=== PATIENT | female | born 1960 | race Caucasian/White ===

== ENCOUNTER 2018-02-18 05:52 | Emergency (ER) | payer OTHER ==
[2018-02-18] MEDS ORDERED: NS 0.9% 1000 ML* 1,000 ML IV ONE (06:19)
[2018-02-18] MEDS ORDERED: Ketorolac INJ* 30 MG/ML 1 ML VIAL IV PUSH ONE (06:22)
[2018-02-18] MEDS ORDERED: Diazepam SYRINGE* 5 MG/ML 2 ML SYRINGE (10 MG total) IV ONE (06:22)
[2018-02-18] MEDS ORDERED: Diazepam INJ (NF) 5 MG/ML 10 ML VIAL (50 MG TOTAL) IV STA (06:42)
[2018-02-18 06:49] LABS: ABS Basophils 0 10^3/ul (0-0.2); ABS Eosinophils 0 10^3/ul (0-0.6); ABS Lymphocytes 0.8 10^3/ul (1.0-4.8); ABS Monocytes 0.3 10^3/ul (0-0.8); ABS Neutrophils 7.5 10^3/ul (1.5-7.7); ABS Nucleated RBC 0 10^3/ul; Eosinophil % 0.2 % (0-6); Hematocrit 39 % (35-47); Hemoglobin 13.7 g/dl (12.0-16.0); Lymphocyte % 9.7 % (25-47); Mean Corpuscular HGB Conc 35 g/dl (31-36); Mean Corpuscular Hemoglobin 31 pg (27-31); Mean Corpuscular Volume 89 fL (80-97); Mean Platelet Volume 8.3 um3 (7.4-10.4); Nucleated Red Blood Cells % 0; Platelet Count 265 10^3/ul (150-450); Red Blood Count 4.41 10^6/ul (4.0-5.4); Red Cell Distribution Width 13 % (10.5-15); White Blood Count 8.7 10^3/ul (3.5-10.8)
[2018-02-18 06:58] LABS: INR 0.98 (0.77-1.02)
[2018-02-18 07:03] LABS: EGFR Non-African American 66.5 (>60)
--- NOTE | 2018-02-18 09:01 | RAD ---
INDICATION: Pain and swelling. COMPARISON: None TECHNIQUE: Duplex interrogation of the Lowerextremity was performed. FINDINGS: Deep veins: The common femoral, great saphenous, profunda femoris, proximal, mid, and distal deep femoral, popliteal, posterior tibial, and peroneal veins are patent. There is normal compressibility, augmentation, and phasic flow. Superficial veins: There are no findings of superficial thrombophlebitis. Popliteal fossa:There is no evidence of a popliteal cyst. Soft tissues:There are no soft tissue abnormalities. IMPRESSION: Normal examination. No evidence of deep venous thrombosis
[2018-02-18 09:26] VITALS: BP 92/48
--- NOTE | 2018-02-18 13:52 | ED ---
IKulwinder Jennifer, scribed for Jennifer Rider MD on 02/18/18 at 0730 . Progress - Progress Note Progress Note: The patient is a sign out from Dr. Anglin at shift change pending bloodwork and disposition. Venous Doppler Study. Interpreted by a radiologist. IMPRESSION: Normal examination. No evidence of deep venous thrombosis. Dr. Rider has reviewed this report. Re-Evaluation - Re-Evaluation First Eval Re-Evaluation Time: 07:51 Change: Unchanged Comment: Upon re-evaluation, the patient told me she has a history of blood clot in her left leg, so I will order a venous doppler study. Course/Dx - Course Course Of Treatment: The patient is a 58 year old female who complains of back pain. Upon further investigation, she reports a history of DVT in the left, but Lower extremity ultrasound showed normal examination. The patient is diagnosed with musculoskeletal pain. She will be discharged and instructed to follow up with PCP in 3 days. Patient reports feeling better. She is HD stable upon discharge - Diagnoses Provider Diagnoses: Musculoskeletal pain Discharge - Sign-Out/Discharge Documenting (check all that apply): Discharge/Admit/Transfer - Discharge Plan Condition: Stable Disposition: HOME Patient Education Materials: Back Pain (ED) Referrals: Sorin Hill MD [Primary Care Provider] - 3 Days Additional Instructions: Follow up with your primary care physician in three days. Return to the emergency department for any new or worsening symptoms. - Billing Disposition and Condition Condition: STABLE Disposition: HOME The documentation as recorded by the Kulwinder michel Jennifer accurately reflects the service I personally performed and the decisions made by me, Jennifer Rider MD.
== END 2018-02-18 09:26 | disposition home or self-care (01) ==
LOC: ED 05:52
DX: M54.9 Dorsalgia, unspecified (principal)
CPT/HCPCS: 36415; 80053; 82550; 85025; 85610; 85730; 86140; 99282; J1885; J3360